=== PATIENT | female | born 1940 | race Caucasian/White ===

== ENCOUNTER 2016-06-02 12:02 | Emergency (ER) | payer MEDICARE ==
[2016-06-02] MEDS ORDERED: Bacitracin Zinc 1 Packet ONE (12:42)
[2016-06-02] MEDS ORDERED: Cephalexin 500 MG CAP ONE (12:42)
[2016-06-02] MEDS ORDERED: Lidocaine Viscous Sol 2% 15 ml UD Cup ONE (12:42)
--- NOTE | 2016-06-02 15:04 | ERRECORD ---
[facility] EMERGENCY RECORD HPI FALL (12:59 MPUR) CHIEF COMPLAINT: Patient presents for evaluation of fall, from standing. HISTORIAN: History provided by patient, 75 y.o. female who caught her foot on a pallet board and fell, landing on her left hand and knee. sustained several scrapes on knee and left forearm and hand. TIME COURSE: Sudden onset of symptoms. ASSOCIATED WITH: Associated with skin tear lt forearm. ROS (13:03 MPUR) CONSTITUTIONAL: Historian denies fever. EYES: Historian denies eye pain. ENT: Historian denies rhinorrhea. CARDIOVASCULAR: Historian denies chest pain. RESPIRATORY: Historian denies cough. GI: Historian denies diarrhea, Historian denies vomiting. MUSCULOSKELETAL: lt total knee. SKIN: see HPI. no rashes. NEUROLOGIC: Historian denies seizures. ENDOCRINE: Historian denies skin changes. HEMO/LYMPHATIC: Historian denies easy bruising. PAST MEDICAL HISTORY (12:23 JPAR) MEDICAL HISTORY: Notes: Lupus, Arthritis, Gout, Osteoporosis, Rheumatoid Arthritis, Hashimotos. liver cirrhosis, Flu vaccine up to date, Tetanus immunization up to date, Pneumococcal vaccine up to date, No past medical history of hyperlipidemia, Past medical history includes history of hypertension, which has been treated. FEMALE SURGICAL HISTORY: Toe surgery, knee replacement, carpal tunnel, L lumpectomy, esophageal surgey., Surgical history of cholecystectomy, open, Date of surgery 1987, Surgical history of hysterectomy. SOCIAL HISTORY: Patient denies alcohol use, Patient denies drug use, Patient has no smoking history. KNOWN ALLERGIES allopurinol: Reaction: Rash, Severity: Mild, Source: Patient CURRENT MEDICATIONS Plaquenil: TABLET : Strength - 200 mg : ORAL Patient Dose: 1 tab(s) Oral. (12:26 JPAR) Cytomel: TABLET : Strength - 5 mcg : ORAL Patient Dose: 1 tab(s) Oral 2 times a day. (12:27 JPAR) Synthroid: TABLET : Strength - 75 mcg : ORAL Patient Dose: 1 tab(s) Oral once a day. (12:28 JPAR) &a-1R&a+25V*p+0X*q6779P*c202B*c15G*c2P*p-0X&a-25V&a+1R Name: Caridad Rojas : 1940 F75 MedRec: [id number] AcctNum: [id number] Prepared: Charity Jun 02, 2016 18:33 by Interface Page [address] [facility] EMERGENCY RECORD Zantac: CAPSULE : Strength - 150 mg : ORAL Patient Dose: 1 tab(s) Oral 2 times a day. (12:28 JPAR) triamterene-hydrochlorothiazid: TABLET : Strength - 75 mg-50 mg : ORAL Patient Dose: 1 tab(s) Oral once a day. (12:33 JPAR) Topamax: TABLET : Strength - 50 mg : ORAL Patient Dose: 1 tab(s) Oral 2 times a day. (12:33 JPAR) Fosamax: TABLET : Strength - 70 mg : ORAL Patient Dose: 1 tab(s) Oral once a week. (12:34 JPAR) predniSONE: TABLET : Strength - 5 mg : ORAL Patient Dose: 1/2 tab(s) Oral once a day. (12:34 JPAR) Cropsey: TABLET : Strength - 7.5 mg-325 mg : ORAL Patient Dose: 1 tab(s) Oral. (12:35 JPAR) benzonatate: CAPSULE : Strength - 100 mg : ORAL Patient Dose: 1 tab(s) Oral every 8 hours PRN. (12:35 JPAR) Claritin: TABLET : Strength - 10 mg : ORAL Patient Dose: 1 tab(s) Oral once a day. (12:35 JPAR) Nasonex: AEROSOL, SPRAY WITH PUMP (GRAM) : Strength - 50 mcg : NASAL Patient Dose: 2 spray(s) Intranasal. (12:36 JPAR) Doris: TABLET : Strength - 180 mg : ORAL Patient Dose: 1 tab(s) Oral once a day. (12:36 JPAR) VITAL SIGNS (12:14 JPAR) VITAL SIGNS: BP: 144/63, Pulse: 92, Resp: 16, Temp: 96.9 (Oral), Pain: 3, O2 sat: 96, Time: 06/02/2016 12:14. PHYSICAL EXAM CONSTITUTIONAL: Vital signs reviewed. (13:03 MPUR) HEAD: Head exam included findings of head atraumatic. (13:03 MPUR) EYES: Eye exam included findings of eyelids normal to inspection, Sclera normal. (13:03 MPUR) ENT: Nose exam normal, no nasal deformity, mucous membranes moist. (13:03 MPUR) NECK: Trachea midline, no contusions. (13:03 MPUR) RESPIRATORY CHEST: Respiratory exam included findings of no respiratory distress, Breath sounds clear, no increased work of breathing, rate nl. (13:03 MPUR) CARDIOVASCULAR: Cardiovascular exam included findings of heart rate regular rate and rhythm, Heart sounds normal. (13:03 MPUR) &a-1R&a+25V*p+0X*t1177J*c202B*c15G*c2P*p-0X&a-25V&a+1R Name: Caridad Rojas : 1940 F75 MedRec: [id number] AcctNum: [id number] Prepared: Charity Jun 02, 2016 18:33 by Interface Page [address] [facility] EMERGENCY RECORD UPPER EXTREMITY: see skin. (13:14 MPUR) LOWER EXTREMITY: no cyanosis, no edema. (13:03 MPUR) NEURO: Speech normal, Memory normal, alert, moving all extremities well. (13:03 MPUR) SKIN: 6 cm Lt shaped skin tear on left forearm. 2 small abrasions on lt hand. one abrasion on rt knee 2.5 cm long. (13:03 MPUR) PSYCHIATRIC: Normal affect, Recent memory normal. (13:03 MPUR) MEDICATION ADMINISTRATION SUMMARY Drug Name: cephALEXin, Dose Ordered: 500 mg, Route: Oral, Status: Given, Time: 13:03 06/02/2016, Detailed record available in Medication Service section. DOCTOR NOTES TEXT: I have reviewed and agree with nurse's past medical, family, and social history as documented on chart. Pt's vital signs have been reviewed. (13:03 MPUR) Wounds cleaned and steristriped as per my orders by nursing. Discussed with the patient their care. (13:19 MPUR) PROBLEM LIST No recorded problems DIAGNOSIS (13:15 MPUR) FINAL: PRIMARY: skin tears, ADDITIONAL: fall. PRESCRIPTION (13:19 MPUR) cephALEXin: CAPSULE : 250 mg : ORAL : Quantity: 1 Unit: cap(s) Route: ORAL Schedule: 4 times a day Dispense: 12 Unit: cap(s) May substitute. Refills: No Refills . NOTES: with food No Refills. DISPOSITION PATIENT: Disposition Type: Discharge, Disposition: *Discharge Home. (13:15 CHAY) Patient left the department. (14:50 EZRA) Avila: EZRA=ANALY High, Ash MPJOVON=MD Briana, Nikunj &a-1R&a+25V*p+0X*a0336N*c202B*c15G*c2P*p-0X&a-25V&a+1R Name: Caridad Rojas : 1940 F75 MedRec: [id number] AcctNum: [id number] Prepared: Charity Jun 02, 2016 18:33 by Interface Page 3 of 3 pMD MTDD
--- NOTE | 2016-06-02 15:07 | PICIS ---
[facility] EMERGENCY RECORD TRIAGE (WedJun 02, 2016 12:17 JPAR) TRIAGE NOTES: Multiple falls lately, most recent was 30 minutes ago resulted in L lower leg contusion and skin tears to L FA. (WedJun 02, 2016 12:17 JPAR) PATIENT: NAME: Caridad Rojas, AGE: 75, GENDER: female, : Sat 1940, TIME OF GREET: WedJun 02, 2016 12:03, PREFERRED LANGUAGE: Uzbek, ETHNICITY: Not or , ECODE BILLING MAP: [facility] ER, SSN: [id number], Zip Code: [address], KG WEIGHT: 48.99, PHONE: , , , PERSON ID: [id number], PCP: Sabrina Ferrell. (WedJun 02, 2016 12:17 JPAR) COMPLAINT: LAC LEFT ARM. (WedJun 02, 2016 12:17 JPAR) ADMISSION: URGENCY: 4 Non Urgent, ADMISSION SOURCE: Home, TRANSPORT: CAR, BED: TRIAGE. (WedJun 02, 2016 12:17 JPAR) ASSESSMENT: Assessment: contusion to left lower leg, skin tear to left FA, abraision l knee, Symptoms began 30 minutes, Symptoms began 30 min ago. (12:23 JPAR) PAIN: Patient complains of pain described as, aching, burning, on a scale 0-10 patient rates pain as 3. (12:23 JPAR) SIRS SCORING: Heart Rate 55-109 (0), Temp range 96.8-101.1 (0), respiratory rate 12-24 (0), Mental Status altered: no (0), Infection or Suspected Infection: No. (12:23 JPAR) TRIAGE SCREENING: Patient denies suicidal ideation, Patient denies presence of domestic violence. (12:23 JPAR) PROVIDERS: TRIAGE NURSE: Ash High RN. (WedJun 02, 2016 12:17 JPAR) VITAL SIGNS: BP 144/63, Pulse 92, Resp 16, Temp 96.9, (Oral), Pain 3, O2 Sat 96, Time 06/02/2016 12:14. (12:14 JPAR) KNOWN ALLERGIES allopurinol: Reaction: Rash, Severity: Mild, Source: Patient CURRENT MEDICATIONS Plaquenil: TABLET : Strength - 200 mg : ORAL Patient Dose: 1 tab(s) Oral. (12:26 JPAR) Cytomel: TABLET : Strength - 5 mcg : ORAL Patient Dose: 1 tab(s) Oral 2 times a day. (12:27 JPAR) Synthroid: TABLET : Strength - 75 mcg : ORAL Patient Dose: 1 tab(s) Oral once a day. (12:28 JPAR) Zantac: CAPSULE : Strength - 150 mg : ORAL Patient Dose: 1 tab(s) Oral 2 times a day. (12:28 JPAR) triamterene-hydrochlorothiazid: TABLET : Strength - 75 mg-50 mg : ORAL Patient Dose: 1 tab(s) Oral once a day. (12:33 JPAR) Topamax: &a-1R&a+25V*p+0X*w9617X*c202B*c15G*c2P*p-0X&a-25V&a+1R Name: Dia Rojasgrayson Quintanilla : 1940 F75 MedRec: [id number] AcctNum: [id number] Prepared: Charity Jun 02, 2016 18:39 by Interface Page 1 of 6 pMD [facility] EMERGENCY RECORD TABLET : Strength - 50 mg : ORAL Patient Dose: 1 tab(s) Oral 2 times a day. (12:33 JPAR) Fosamax: TABLET : Strength - 70 mg : ORAL Patient Dose: 1 tab(s) Oral once a week. (12:34 JPAR) predniSONE: TABLET : Strength - 5 mg : ORAL Patient Dose: 1/2 tab(s) Oral once a day. (12:34 JPAR) [place]: TABLET : Strength - 7.5 mg-325 mg : ORAL Patient Dose: 1 tab(s) Oral. (12:35 JPAR) benzonatate: CAPSULE : Strength - 100 mg : ORAL Patient Dose: 1 tab(s) Oral every 8 hours PRN. (12:35 JPAR) Claritin: TABLET : Strength - 10 mg : ORAL Patient Dose: 1 tab(s) Oral once a day. (12:35 JPAR) Nasonex: AEROSOL, SPRAY WITH PUMP (GRAM) : Strength - 50 mcg : NASAL Patient Dose: 2 spray(s) Intranasal. (12:36 JPAR) Doris: TABLET : Strength - 180 mg : ORAL Patient Dose: 1 tab(s) Oral once a day. (12:36 JPAR) VITAL SIGNS (12:14 JPAR) VITAL SIGNS: BP: 144/63, Pulse: 92, Resp: 16, Temp: 96.9 (Oral), Pain: 3, O2 sat: 96, Time: 06/02/2016 12:14. NURSING ASSESSMENT: EXTREMITY LOWER (12:22 EPIE) CONSTITUTIONAL: Patient arrives ambulatory, Gait steady, History obtained from patient, Patient appears comfortable, Patient cooperative, Patient alert, Oriented to person, place and time, Skin warm, Skin dry, Skin normal in color, Mucous membranes pink, Mucous membranes moist, Patient complains of trip and fall, contusion left lower green. PAIN: aching pain, to the left lower leg, Onset of pain 30 minutes, on a scale 0-10 patient rates pain as 3. LEFT LOWER EXTREMITY: Left lower extremity assessment findings include capillary refill less than 2 seconds, Skin color normal, Skin temperature warm, Distal sensation intact, Muscle tone normal, Inspection findings include contusion, to L Green, Inspection findings include swelling, to L green. SAFETY: Side rails up, Cart/Stretcher in lowest position, Family at bedside, Call light within reach, Hospital ID band on. NURSING ASSESSMENT: SKIN (12:22 EPIE) SKIN: Skin assessment findings include skin warm, Skin dry, Skin normal in color, Inspection findings include abrasion, to L knee, Inspection findings include contusion, to &a-1R&a+25V*p+0X*r3170N*c202B*c15G*c2P*p-0X&a-25V&a+1R Name: Caridad Rojas [place] : 1940 F75 MedRec: [id number] AcctNum: [id number] Prepared: Charity Jun 02, 2016 18:39 by Interface Page 2 of 6 pMD [facility] EMERGENCY RECORD L green, Inspection findings include laceration, to skin tear l FA, length (cm) 6 cm, bleeding controlled, direct pressure and 4X4 to site. SAFETY: Side rails up, Cart/Stretcher in lowest position, Family at bedside, Call light within reach, Hospital ID band on. NURSING PROCEDURE: DISCHARGE NOTE (13:40 EPIE) DISCHARGE: Patient discharged to home, ambulating with assistance, family driving, accompanied by other family member, Summary of Care printed/ provided, Discharge instructions given to patient, Simple or moderate discharge teaching performed, by Ash BECKFORD, Prescriptions given and instructions on side effects given, Name of prescription(s) given: cephalexin, Above person(s) verbalized understanding of discharge instructions and follow-up care. BELONGINGS: Belongings and valuables with patient upon arrival to the Emergency Department include:, Belongings and valuables with patient at time of discharge include:, Belongings remain with patient, Valuables remain with patient. ORDER DETAILS Order Name: Miscellaneous Nurse Order(s), Status: Done, Time: 13:21 06/02/2016, User: EZRA, - Ordered for: MD Warren Marcus, - Entered by: MD Warren Marcus - Tue Jun 02, 2016 12:43, - Quantity: 1, Order Name: Miscellaneous Nurse Order(s), Status: Done, Time: 13:21 06/02/2016, User: EZRA, - Ordered for: MD Warren Marcus, - Entered by: MD Warren Marcus - Tue Jun 02, 2016 12:44, - Quantity: 1. MEDICATION ADMINISTRATION SUMMARY Drug Name: cephALEXin, Dose Ordered: 500 mg, Route: Oral, Status: Given, Time: 13:03 06/02/2016, Detailed record available in Medication Service section. MEDICATION SERVICE (13:03 MPUR) cephALEXin: Order: cephALEXin (cephalexin monohydrate) - Dose: 500 mg : Oral Schedule: Now Ordered by: Nikunj Warren MD Entered by: Nikunj Warren MD tatiana Jun 02, 2016 12:42 Documented as given by: Ash High RN WedJun 02, 2016 13:03 Patient, Medication, Dose, Route and Time verified prior to administration. Patient appears Awake and alert- acceptable, Correct patient, time, route, dose and medication confirmed prior to administration, Patient advised of actions and side-effects prior to administration, &a-1R&a+25V*p+0X*d5973Z*c202B*c15G*c2P*p-0X&a-25V&a+1R Name: Caridad Rojas : 1940 F75 MedRec: [id number] AcctNum: [id number] Prepared: Charity Jun 02, 2016 18:39 by Interface Page 3 of 6 pMD [facility] EMERGENCY RECORD Allergies confirmed and medications reviewed prior to administration, Patient in position of comfort, Side rails up, Cart in lowest position, Family at bedside, Call light in reach. HPI FALL (12:59 MPUR) CHIEF COMPLAINT: Patient presents for evaluation of fall, from standing. HISTORIAN: History provided by patient, 75 y.o. female who caught her foot on a pallet board and fell, landing on her left hand and knee. sustained several scrapes on knee and left forearm and hand. TIME COURSE: Sudden onset of symptoms. ASSOCIATED WITH: Associated with skin tear lt forearm. ROS (13:03 MPUR) CONSTITUTIONAL: Historian denies fever. EYES: Historian denies eye pain. ENT: Historian denies rhinorrhea. CARDIOVASCULAR: Historian denies chest pain. RESPIRATORY: Historian denies cough. GI: Historian denies diarrhea, Historian denies vomiting. MUSCULOSKELETAL: lt total knee. SKIN: see HPI. no rashes. NEUROLOGIC: Historian denies seizures. ENDOCRINE: Historian denies skin changes. HEMO/LYMPHATIC: Historian denies easy bruising. PAST MEDICAL HISTORY (12:23 JPAR) MEDICAL HISTORY: Notes: Lupus, Arthritis, Gout, Osteoporosis, Rheumatoid Arthritis, Hashimotos. liver cirrhosis, Flu vaccine up to date, Tetanus immunization up to date, Pneumococcal vaccine up to date, No past medical history of hyperlipidemia, Past medical history includes history of hypertension, which has been treated. FEMALE SURGICAL HISTORY: Toe surgery, knee replacement, carpal tunnel, L lumpectomy, esophageal surgey., Surgical history of cholecystectomy, open, Date of surgery 1987, Surgical history of hysterectomy. SOCIAL HISTORY: Patient denies alcohol use, Patient denies drug use, Patient has no smoking history. PHYSICAL EXAM CONSTITUTIONAL: Vital signs reviewed. (13:03 MPUR) HEAD: Head exam included findings of head atraumatic. (13:03 MPUR) EYES: Eye exam included findings of eyelids normal to inspection, Sclera normal. (13:03 MPUR) ENT: Nose exam normal, no nasal deformity, mucous membranes moist. (13:03 MPUR) NECK: Trachea midline, no contusions. (13:03 MPUR) &a-1R&a+25V*p+0X*n7425W*c202B*c15G*c2P*p-0X&a-25V&a+1R Name: Caridad Rojas : 1940 F75 MedRec: [id number] AcctNum: [id number] Prepared: WedJun 02, 2016 18:39 by Interface Page 4 of 6 pMD [facility] EMERGENCY RECORD RESPIRATORY CHEST: Respiratory exam included findings of no respiratory distress, Breath sounds clear, no increased work of breathing, rate nl. (13:03 MPUR) CARDIOVASCULAR: Cardiovascular exam included findings of heart rate regular rate and rhythm, Heart sounds normal. (13:03 MPUR) UPPER EXTREMITY: see skin. (13:14 MPUR) LOWER EXTREMITY: no cyanosis, no edema. (13:03 MPUR) NEURO: Speech normal, Memory normal, alert, moving all extremities well. (13:03 MPUR) SKIN: 6 cm Lt shaped skin tear on left forearm. 2 small abrasions on lt hand. one abrasion on rt knee 2.5 cm long. (13:03 MPUR) PSYCHIATRIC: Normal affect, Recent memory normal. (13:03 MPUR) EVENTS TRANSFER: Triage to Emergency Triage. (WedJun 02, 2016 12:17 JPAR) Emergency Triage to Emergency Room -04. (12:18 JPAR) Emergency Emergency Room -04 to Holding. (13:51 JPAR) Removed from Emergency Holding. (14:50 JPAR) DOCTOR NOTES TEXT: I have reviewed and agree with nurse's past medical, family, and social history as documented on chart. Pt's vital signs have been reviewed. (13:03 MPUR) Wounds cleaned and steristriped as per my orders by nursing. Discussed with the patient their care. (13:19 MPUR) PROBLEM LIST No recorded problems DIAGNOSIS (13:15 MPUR) FINAL: PRIMARY: skin tears, ADDITIONAL: fall. DISPOSITION PATIENT: Disposition Type: Discharge, Disposition: *Discharge Home. (13:15 MPUR) Patient left the department. (14:50 JPAR) INSTRUCTION (13:19 MPUR) DISCHARGE: LACERATION DERMAL AVULSION, LACERATION, EXTREM (SUTURE, STAPLE OR TAPE). SPECIAL: Change dressing daily. Take antibiotics until gone Follow-up with your primary physician as needed Tylenol or Advil for Pain. Leave steristrips on for 10 days. PRESCRIPTION (13:19 MPUR) cephALEXin: CAPSULE : 250 mg : ORAL : Quantity: 1 Unit: &a-1R&a+25V*p+0X*x9773D*c202B*c15G*c2P*p-0X&a-25V&a+1R Name: Caridad Rojas : 1940 F75 MedRec: [id number] AcctNum: [id number] Prepared: WedJun 02, 2016 18:39 by Interface Page 5 of 6 pMD [facility] EMERGENCY RECORD cap(s) Route: ORAL Schedule: 4 times a day Dispense: 12 Unit: cap(s) May substitute. Refills: No Refills . NOTES: with food No Refills. IMAGING (15:14 EPIE) *DISCHARGE INSTRUCTIONS RECEIPT: Image captured from scanner. *SUPPLY CHARGE SHEET: Image captured from scanner. ADMIN (18:29 MPUR) DIGITAL SIGNATURE: MD Briana, Nikunj. Avila: EPIE=ANALY Bradley, Sarah PARISAR=ANALY High Jason MPUR=MD Warren Marcus &a-1R&a+25V*p+0X*z1390X*c202B*c15G*c2P*p-0X&a-25V&a+1R Name: Caridad Rojas : 1940 F75 MedRec: [id number] AcctNum: [id number] Prepared: WedJun 02, 2016 18:39 by Interface Page 6 of 6 pMD MTDD
== END 2016-06-02 13:40 | disposition home or self-care (01) ==
LOC: NAV ERS 12:02
DX: S51.812A Laceration without foreign body of left forearm, initial encounter (principal); S60.512A Abrasion of left hand, initial encounter; S80.211A Abrasion, right knee, initial encounter; I10 Essential (primary) hypertension; W19.XXXA Unspecified fall, initial encounter
CPT/HCPCS: 99283

== ENCOUNTER 2017-03-08 16:32 | Emergency (ER) | payer MEDICARE ==
[2017-03-08] MEDS ORDERED: Bupivacaine 0.5% 10 ML VIAL ONE (17:04)
== END 2017-03-08 18:25 | disposition home or self-care (01) ==
LOC: NAV ERS 16:32
DX: S81.811A Laceration without foreign body, right lower leg, initial encounter (principal); M10.9 Gout, unspecified; M19.90 Unspecified osteoarthritis, unspecified site; M06.9 Rheumatoid arthritis, unspecified; E06.3 Autoimmune thyroiditis; Z79.899 Other long term (current) drug therapy; W20.8XXA Other cause of strike by thrown, projected or falling object, initial encounter
CPT/HCPCS: 12035; J3490